=== PATIENT | male | born 1970 | race Caucasian/White ===

== ENCOUNTER 2025-02-21 22:23 | Inpatient (IN) | payer MEDICAID ==
[~2025-02-21] VITALS: Ht 170.2 cm; Wt 65.8 kg
[2025-02-22 00:15] LABS: BASOPHILS # (AUTO) 0.1 K/uL (0.0-0.2); BASOPHILS % (AUTO) 0.7 % (0.0-2.0); EOSINOPHILS # (AUTO) 0.3 K/uL (0.0-0.7); EOSINOPHILS % (AUTO) 3.7 % (0.0-6.0); HEMATOCRIT 40 % (39-51); HEMOGLOBIN 13.7 g/dL (13.5-17.5); LYMPHOCYTES # (AUTO) 2.9 K/uL (0.8-4.8); LYMPHOCYTES % (AUTO) 34.5 % (20.0-44.0); MEAN CORPUSCULAR HEMOGLOBIN 33 PG (26.0-33.0); MEAN CORPUSCULAR HGB CONC 35 g/dl (31.0-36.0); MEAN CORPUSCULAR VOLUME 96 fL (80-96); MONOCYTES # (AUTO) 0.8 K/uL (0.1-1.30); MONOCYTES % (AUTO) 9.5 % (2.0-12.0); NEUTROPHILS # (AUTO) 4.4 K/uL (1.8-8.9); NEUTROPHILS % (AUTO) 51.6 % (43.0-81.0); PLATELET COUNT (AUTO) 235 K/uL (150-450); RED BLOOD CELL COUNT(AUTO) 4.16 MIL/uL (4.5-6.0); RED CELL DISTRIBUTION WIDTH 14.2 % (11.5-15.0); WHITE BLOOD COUNT (AUTO) 8.5 K/uL (4.3-11.0)
[2025-02-22 00:25] LABS: CALCIUM, SERUM 8.7 mg/dL (8.5-10.1); CREATININE 0.7 mg/dL (0.6-1.3); POTASSIUM 3.7 mmol/L (3.5-5.1)
[2025-02-22 00:38] LABS: BILIRUBIN,TOTAL 0.3 mg/dL (0.2-1.0); TOTAL PROTEIN, SERUM 5.9 g/dL (6.4-8.2)
[2025-02-22] MEDS ORDERED: ONDANSETRON HCL/PF 4 MG/2 ML VIAL ONE ×2 (00:38→04:47)
[2025-02-22] MEDS ORDERED: HYDROMORPHONE 1 MG/1 ML DISP.SYRIN ONE ×2 (00:39→04:47)
[2025-02-22] MEDS: HYDROMORPHONE 1 MG/1 ML DISP.SYRIN IV ONE ×2 (00:44→04:55)
[2025-02-22] MEDS: IV NS 0.9% 1,000 ML IV ONE (00:44)
[2025-02-22] MEDS: ONDANSETRON HCL/PF - ER 4 MG/2 ML VIAL IV ONE ×2 (00:44→04:55)
[2025-02-22] MEDS ORDERED: IV NS 0.9% 250 ML IV ONE (00:54)
[2025-02-22] MEDS ORDERED: IOHEXOL-300 100 ML VIAL IV ONE (00:54)
[2025-02-22] MEDS ORDERED: CT SWABBABLE VALVE TRANS SET 1 EA INFUS.SET MC ONE (00:55)
[2025-02-22 03:44] LABS: APPEARANCE,URINE CLEAR (CLEAR); BILIRUBIN,URINE NEGATIVE (NEGATIVE); BLOOD, URINE NEGATIVE Ery/uL (NEGATIVE); COLOR,URINE YELLOW (YELLOW); KETONES,URINE NEGATIVE (NEGATIVE); LEUKOCYTE ESTERASE ,URINE NEGATIVE (NEGATIVE); NITRITE, URINE NEGATIVE (NEGATIVE); PROTEIN,URINE NEGATIVE (NEGATIVE); UGLUCOSE NEGATIVE (NEGATIVE); UROBILINOGEN,URINE 0.2 EU/dL (0.2)
[2025-02-22] MEDS ORDERED: HEPARIN SODIUM, PORCINE 5000 UNITS/1 ML VIAL ONE (05:33)
[2025-02-22] MEDS: HEPARIN SODIUM, PORCINE 5000 UNITS/1 ML VIAL IV ONE (05:35)
[2025-02-22] MEDS ORDERED: ONDANSETRON HCL/PF 4 MG/2 ML VIAL IVP PRN (06:00)
[2025-02-22] MEDS ORDERED: ACETAMINOPHEN 325 MG TABLET PO PRN (06:00)
[2025-02-22] MEDS ORDERED: Z GUARD REMEDY 4 OZ OINT TP PRN (06:00)
[2025-02-22] MEDS ORDERED: ACETAMINOPHEN 650 MG/SUPP.RECT RC PRN (06:00)
[2025-02-22 06:10] LABS: INR 0.98 (0.91-1.10); PROTHROMBIN TIME 10.4 SECS (9.2-11.1)
[2025-02-22] MEDS: HEPARIN INFUSION/D5W 500 ML IV PRN (07:13)
[2025-02-22 08:47] VITALS: BP 110/77; TEMP 97.5; O2SAT 100
[2025-02-22] MEDS: PANTOPRAZOLE 40 MG VIAL IV SCH (08:58)
[2025-02-22] MEDS: IV D5/0.45 NACL 1,000 ML IV PRN (08:59)
[2025-02-22 12:00] VITALS: BP 114/68; TEMP 97.9; O2SAT 100
[2025-02-22] MEDS ORDERED: PANT40TA2 PO (13:29)
[2025-02-22] MEDS ORDERED: APIX5TAB PO (13:29)
[2025-02-22 15:16] LABS: INR 0.99 (0.91-1.10); PROTHROMBIN TIME 10.5 SECS (9.2-11.1)
== END 2025-02-22 15:14 | disposition home or self-care (01) | DRG 197 ==
LOC: ER 22:40 → TELE1 02-22 07:46
PROVIDERS: ADMIT Nurse Practitioner Acute Care; ATTEND Nurse Practitioner Acute Care
DX: I82.890 Acute embolism and thrombosis of other specified veins (principal); F17.210 Nicotine dependence, cigarettes, uncomplicated; Z87.19 Personal history of other diseases of the digestive system; I82.210 Acute embolism and thrombosis of superior vena cava
CPT/HCPCS: 36415; 71045-TC; 71260-TC; 80053-TC; 83605-TC; 83690-TC; 83880; 84484-TC; 85025-TC; 85610-TC; 85730-TC; A4223; G0378; J1171; J1644; J2405; J2470; J3490; J7050; Q9967